=== PATIENT | male | born 1975 | race Caucasian/White ===

== ENCOUNTER → 2017-06-25 | Outpatient (CLI) | payer BC, OTHER | LOC: M SMT 09:48 | PROVIDERS: ATTEND Thoracic Surgery (Cardiothoracic Vascular Surgery) | DX: M62.830 Muscle spasm of back (principal) ==

== ENCOUNTER → 2018-01-13 | Outpatient (CLI) | payer BC, OTHER | LOC: M SMT 14:08 | DX: M51.37 Other intervertebral disc degeneration, lumbosacral region (principal) | CPT/HCPCS: 72114 ==

== ENCOUNTER → 2018-09-13 | Outpatient (CLI) | payer BC, OTHER ==
[2018-09-13 12:06] LABS: BASO % 0.6 % (0.0-1.0); EOS # 0.2 10^3/uL (0.0-0.50); EOS % 2.4 % (0.0-3.0); HEMATOCRIT 45.7 % (42.0-52.0); HEMOGLOBIN 16.2 g/dl (13.5-17.5); LYMPH # 3.1 10^3/uL (1.5-4.5); LYMPH % 43.5 % (24.0-44.0); MEAN CORPUSCULAR HEMOGLOBIN 32.3 pg (27.0-33.0); MEAN CORPUSCULAR HGB CONC 35.4 g/dl (32.0-36.5); MONO # 0.7 10^3/uL (0.0-0.8); MONO % 10.1 % (0.0-5.0); NEUTROPHILS % 43.1 % (36.0-66.0); PLATELET COUNT, AUTOMATED 288 10^3/uL (150-450); RED BLOOD COUNT 5.02 10^6/uL (4.30-6.10); WHITE BLOOD COUNT 7.1 10^3/uL (4.0-10.0)
[2018-09-13 12:45] LABS: ALBUMIN 3.9 GM/DL (3.2-5.2); ALT/SGPT 68 U/L (12-78); BILIRUBIN,TOTAL 0.5 MG/DL (0.2-1.0); BLOOD UREA NITROGEN 13 MG/DL (7-18); CARBON DIOXIDE LEVEL 26 MEQ/L (21-32); CHLORIDE LEVEL 107 MEQ/L (98-107); CHOLESTEROL LEVEL 219 MG/DL (<200); CHOLESTEROL RISK RATIO 6.083 (<5); CREATININE FOR GFR 0.98 MG/DL (0.70-1.30); FREE T4 0.86 NG/DL (0.76-1.46); GLOMERULAR FILTRATION RATE > 60.0 (>60); GLUCOSE, FASTING 69 MG/DL (70-100); HDL CHOLESTEROL 36 MG/DL (>40); LDL CHOLESTEROL 132 MG/DL (<100); NON-HDL-C 183 MG/DL; POTASSIUM SERUM 4.3 MEQ/L (3.5-5.1); SODIUM LEVEL 142 MEQ/L (136-145); TRIGLYCERIDES LEVEL 257 MG/DL (<150)
== END ==
LOC: M LRY 09:39
PROVIDERS: ATTEND Family Medicine
DX: F32.1 Major depressive disorder, single episode, moderate (principal); Z13.29 Encounter for screening for other suspected endocrine disorder; Z13.0 Encounter for screening for diseases of the blood and blood-forming organs and certain disorders involving the immune mechanism; Z13.220 Encounter for screening for lipoid disorders

== ENCOUNTER → 2018-10-25 | Outpatient (CLI) | payer BC, OTHER ==
[2018-10-29 00:08] LABS: TESTOSTERONE FREE (DIRECT) 9.9 pg/mL (6.8-21.5)
== END ==
LOC: M SMT 13:40
PROVIDERS: ATTEND Physician Assistant
DX: R53.83 Other fatigue (principal)

== ENCOUNTER → 2019-11-14 | Outpatient (CLI) | payer BC, OTHER ==
[2019-11-14 13:25] LABS: BASO % 0.5 % (0.0-1.0); EOS # 0.2 10^3/uL (0.0-0.5); EOS % 2.6 % (0.0-3.0); HEMATOCRIT 46.1 % (42.0-52.0); HEMOGLOBIN 16.4 g/dl (13.5-17.5); LYMPH # 2.5 10^3/uL (1.5-5.0); LYMPH % 37.6 % (24.0-44.0); MEAN CORPUSCULAR HGB CONC 35.6 g/dl (32.0-36.5); MEAN CORPUSCULAR VOLUME 92.8 fl (80.0-96.0); MONO # 0.6 10^3/uL (0.0-0.8); MONO % 8.3 % (0.0-5.0); NEUTROPHILS # 3.3 10^3/uL (1.5-8.5); NEUTROPHILS % 50.5 % (36.0-66.0); PLATELET COUNT, AUTOMATED 273 10^3/uL (150-450); RED BLOOD COUNT 4.97 10^6/uL (4.30-6.10); WHITE BLOOD COUNT 6.6 10^3/uL (4.0-10.0)
[2019-11-14 13:40] LABS: ALT/SGPT 57 U/L (12-78); BILIRUBIN,TOTAL 0.8 MG/DL (0.2-1.0); BLOOD UREA NITROGEN 11 MG/DL (7-18); CALCIUM LEVEL 9.5 MG/DL (8.5-10.1); CARBON DIOXIDE LEVEL 27 MEQ/L (21-32); CHLORIDE LEVEL 112 MEQ/L (98-107); CHOLESTEROL LEVEL 204 MG/DL (<200); CHOLESTEROL RISK RATIO 5.828 (<5); CREATININE FOR GFR 1.08 MG/DL (0.70-1.30); GLOMERULAR FILTRATION RATE > 60.0 (>60); GLUCOSE, FASTING 91 MG/DL (70-100); HDL CHOLESTEROL 35 MG/DL (>40); LDL CHOLESTEROL 136 MG/DL (<100); NON-HDL-C 169 MG/DL; POTASSIUM SERUM 4.5 MEQ/L (3.5-5.1); SODIUM LEVEL 142 MEQ/L (136-145); TOTAL 25(OH) VITAMIN D 20.6 NG/ML (30.0-100.0); TOTAL PROTEIN 7.3 GM/DL (6.4-8.2); TRIGLYCERIDES LEVEL 164 MG/DL (<150)
[2019-11-14 14:37] LABS: HEMOGLOBIN A1c 5.5 %
[2019-11-16 00:06] LABS: TESTOSTERONE FREE (DIRECT) 9.9 pg/mL (6.8-21.5)
== END ==
LOC: M PLALAB 11:07
PROVIDERS: ATTEND Physician Assistant
DX: E78.2 Mixed hyperlipidemia (principal); E55.9 Vitamin D deficiency, unspecified; G47.8 Other sleep disorders

== ENCOUNTER → 2019-11-17 | Outpatient (CLI) | payer BC, OTHER | LOC: M SLEEP HO 10:27 | PROVIDERS: ATTEND Physician Assistant | DX: G47.30 Sleep apnea, unspecified (principal) ==

== ENCOUNTER → 2023-04-02 | Outpatient (CLI) | payer BC, OTHER ==
[2023-04-02 14:49] LABS: BASO % 0.4 % (0.0-1.0); EOS # 0.2 10^3/uL (0.0-0.5); HEMATOCRIT 47.3 % (42.0-52.0); HEMOGLOBIN 16.2 g/dl (13.5-17.5); LYMPH # 2.7 10^3/uL (1.5-5.0); LYMPH % 38.4 % (24.0-44.0); MEAN CORPUSCULAR HEMOGLOBIN 32.3 pg (27.0-33.0); MEAN CORPUSCULAR HGB CONC 34.2 g/dl (32.0-36.5); MEAN CORPUSCULAR VOLUME 94.4 fl (80.0-96.0); MONO # 0.6 10^3/uL (0.0-0.8); MONO % 8.8 % (2.0-8.0); NEUTROPHILS # 3.5 10^3/uL (1.5-8.5); NEUTROPHILS % 49.3 % (36.0-66.0); PLATELET COUNT, AUTOMATED 284 10^3/uL (150-450); RED BLOOD COUNT 5.01 10^6/uL (4.30-6.10)
[2023-04-02 15:04] LABS: HEMOGLOBIN A1c 4.9 % (4.0-6.0)
[2023-04-02 15:13] LABS: C REACTIVE PROTEIN QUANTITATIV < 0.40 MG/DL (<1.0)
[2023-04-02 15:15] LABS: ERYTHROCYTE SEDIMENTATION RATE 9 mm/hr (0-15)
[2023-04-02 15:18] LABS: ALKALINE PHOSPHATASE 62 U/L (46-116); ALT/SGPT 36 U/L (7.0-40); AST/SGOT 18 U/L (<34); BILIRUBIN,TOTAL 0.5 MG/DL (0.3-1.2); BLOOD UREA NITROGEN 14 MG/DL (9-23); CALCIUM LEVEL 9.1 MG/DL (8.5-10.1); CARBON DIOXIDE LEVEL 24 MMOL/L (20-31); CHLORIDE LEVEL 108 MMOL/L (98-107); CHOLESTEROL LEVEL 176 MG/DL (<200); CHOLESTEROL RISK RATIO 4.79 (<5); CREATININE FOR GFR 0.95 MG/DL (0.70-1.30); FREE T4 0.94 NG/DL (0.89-1.76); GLOMERULAR FILTRATION RATE > 60.0 (>60); GLUCOSE, FASTING 81 MG/DL (60-100); HDL CHOLESTEROL 36.7 MG/DL (>40); LDL CHOLESTEROL 111.5 MG/DL (<100); NON-HDL-C 139.3 MG/DL; POTASSIUM SERUM 4.6 MMOL/L (3.5-5.1); SODIUM LEVEL 139 MMOL/L (136-145); THYROID STIMULATING HORMONE 2.835 uIU/ML (0.55-4.78); TOTAL 25(OH) VITAMIN D 29.3 NG/ML (20.0-100.0); TOTAL PROTEIN 6.8 G/DL (5.7-8.2); TRIGLYCERIDES LEVEL 139 MG/DL (<150)
[2023-04-02 15:19] LABS: URIC ACID 7.2 MG/DL (3.7-9.2)
== END ==
LOC: M PLALAB 10:31
PROVIDERS: ATTEND Physician Assistant
DX: Z12.5 Encounter for screening for malignant neoplasm of prostate (principal); Z13.220 Encounter for screening for lipoid disorders; Z13.29 Encounter for screening for other suspected endocrine disorder; Z82.61 Family history of arthritis
CPT/HCPCS: 36415; 80053; 80061; 81374; 82306; 83036; 84439; 84443; 84550; 85025; 85652; 86038; 86140; 86200; 86431; G0103

== ENCOUNTER → 2025-05-25 | Outpatient (CLI) | payer BC ==
[2025-05-25 13:59] LABS: ALT/SGPT 62.0 U/L (7.0-40); AST/SGOT 36.0 U/L (<34); CALCIUM LEVEL 9.4 MG/DL (8.5-10.1); CARBON DIOXIDE LEVEL 30.0 MMOL/L (20-31); CHLORIDE LEVEL 108.0 MMOL/L (98-107); CREATININE FOR GFR 1.14 MG/DL (0.70-1.30); GLOMERULAR FILTRATION RATE 79.8 (>60); POTASSIUM SERUM 4.4 MMOL/L (3.5-5.1); SODIUM LEVEL 144.0 MMOL/L (136-145)
[2025-05-25 14:00] LABS: PSA SCREENING 0.43 NG/ML (< 4.00)
[2025-05-25 14:04] LABS: FREE T4 1.04 NG/DL (0.89-1.76)
[2025-05-25 14:30] LABS: BASO # 0.0 10^3/uL (0.0-0.2); BASO % 0.6 % (0.0-1.0); EOS # 0.3 10^3/uL (0.0-0.5); EOS % 4.7 % (0.0-3.0); LYMPH # 2.5 10^3/uL (1.5-5.0); LYMPH % 34.8 % (24.0-44.0); MONO # 0.6 10^3/uL (0.0-0.8); MONO % 8.3 % (2.0-8.0); NEUTROPHILS # 3.7 10^3/uL (1.5-8.5); NEUTROPHILS % 51.5 % (36.0-66.0); PLATELET COUNT, AUTOMATED 275 10^3/uL (150-450)
[2025-05-25 17:24] LABS: ESTIMATED AVERAGE GLUCOSE 111.0 MG/DL (60-110)
== END ==
LOC: M WUC 08:57
PROVIDERS: ATTEND Physician Assistant
DX: Z13.29 Encounter for screening for other suspected endocrine disorder (principal); R35.1 Nocturia
CPT/HCPCS: 36415; 80053; 83036; 84402; 84403; 84439; 84443; 85025; G0103